=== PATIENT | female | born 1960 | race Asian ===

== ENCOUNTER 2019-07-19 16:10 | Emergency (ER) | payer BC ==
[~2019-07-19] VITALS: Ht 149.9 cm; Wt 45.0 kg
[2019-07-19] MEDS ORDERED: LISI-186 PO (16:44)
[2019-07-19] MEDS ORDERED: METF500T MT (16:44)
[2019-07-19 20:36] VITALS: BP 140/80
[2019-07-23 10:58] LABS: COVID-19 PCR RNA NOT DETECTED
[2019-07-23 11:00] LABS: COVID-19 PCR RNA DETECTED
== END 2019-07-19 20:37 | disposition home or self-care (01) ==
LOC: ER 16:10
DX: J06.9 Acute upper respiratory infection, unspecified (principal); M79.81 Nontraumatic hematoma of soft tissue; E11.9 Type 2 diabetes mellitus without complications; I10 Essential (primary) hypertension; Z98.890 Other specified postprocedural states; Z79.899 Other long term (current) drug therapy
CPT/HCPCS: 71045; 87804; 99284